=== PATIENT | male | born 1950 | race Caucasian/White ===

== ENCOUNTER 2017-03-11 14:51 | Inpatient (IN) | payer MEDICARE, BC ==
[~2017-03-11] VITALS: Ht 160 cm; Wt 92.0 kg
[~2017-03-11 14:51] MED LIST: ASPI-535; BENA40TA54; CLOP75TA19; HYDR1CAP; ISOS60TA52; LANS30CA47; METO-53; NITR0.4T6; PRA40
[2017-03-11] MEDS ORDERED: ASPIRIN 325 MG TAB PO STA (16:23)
[2017-03-11] MEDS ORDERED: NITROGLYCERIN (SL) 0.4 MG TAB SL PRN (16:30)
[2017-03-11] MEDS ORDERED: morphine 4 MG/ML VIAL IV STA (16:32)
[2017-03-11] MEDS ORDERED: ONDANSETRON 4 MG INJ IV STA ×2 (16:32→18:59)
[2017-03-11 16:40] LABS: ADD SCAN DIFF NO
[2017-03-11 16:42] LABS: BASOPHILS % 0.5 % (0.0-2.0); EOSINOPHILS # 0.3 10^3/ul (0.0-0.5); EOSINOPHILS % 3.3 % (0.0-7.0); HEMATOCRIT 46.5 % (42.0-52.0); HEMOGLOBIN 15.6 g/dl (14.0-18.0); LYMPHOCYTES # 1.3 10^3/ul (0.8-2.9); LYMPHOCYTES % 16.9 % (15.0-51.0); MEAN CORPUSCULAR HEMOGLOBIN 31.3 pg (29.0-33.0); MEAN CORPUSCULAR HGB CONC 33.5 g/dl (32.0-37.0); MEAN CORPUSCULAR VOLUME 93.4 fl (82.0-101.0); MEAN PLATELET VOLUME 10.5 fl (7.4-10.4); MONOCYTE # 0.7 10^3/ul (0.3-0.9); MONOCYTES % 9.2 % (0.0-11.0); NEUTROPHIL # 5.3 10^3/ul (1.6-7.5); NEUTROPHILS % 69.3 % (39.0-77.0); PLATELET COUNT 159 10^3/UL (140-415); RED BLOOD COUNT 4.98 10^6/ul (4.70-6.10); RED CELL DISTRIBUTION WIDTH 14.8 % (11.5-14.5); WHITE BLOOD COUNT 7.6 10^3/ul (4.8-10.8)
[2017-03-11 16:57] LABS: INR 1.04; PROTIME 13.6 Sec (12.2-14.2); PT RATIO 1.1
[2017-03-11 16:59] LABS: ALANINE AMINOTRANSFERASE 73 IU/L (13-69); ALBUMIN 4.2 g/dl (3.3-4.9); ALBUMIN/GLOBULIN RATIO 1.82; ALKALINE PHOSPHATASE 76 IU/L (42-121); AMYLASE 50 U/L (11-123); ANION GAP 18 (8-16); ASPARTATE AMINO TRANSFERASE 124 IU/L (15-46); BILIRUBIN,INDIRECT 0.4 mg/dl (0-1.1); BILIRUBIN,TOTAL 0.4 mg/dl (0.2-1.3); BLOOD UREA NITROGEN 33 mg/dl (7-20); CALCIUM 9.2 mg/dl (8.4-10.2); CARBON DIOXIDE 24 mmol/L (21-31); CHLORIDE 102 mmol/L (97-110); CREATINE KINASE 86 IU/L (23-200); CREATININE 1.68 mg/dl (0.61-1.24); GLUCOSE 128 mg/dl (70-220); SODIUM 140 mmol/L (135-144); TOTAL PROTEIN 6.5 g/dl (6.1-8.1)
[2017-03-11 17:11] LABS: B-TYPE NATRIURETIC PEPTIDE 281 PG/ML (0-125)
[2017-03-11 17:16] LABS: CK-MB 2.06 ng/ml (0.0-2.4); TROPONIN-I < 0.012 ng/ml (0.00-0.12)
[2017-03-11] MEDS ORDERED: SOD CHLORIDE 0.9% 1,000 ML IV STA (17:39)
--- NOTE | 2017-03-11 17:44 | ERA ---
ER Documentation Chief Complaint Date/Time DATE: 03/11/17 TIME: 17:39 Chief Complaint CONSTANT LEFT CHEST PAIN/RADIATES TO BACK/NON-PROVOKED HPI This is a 66-year-old [place]alan-speaking male with a known history of coronary artery disease with a triple bypass performed 20 years prior to arrival. The patient indicates that 2 days prior to arrival the patient had been washing his hands in the bathroom when he had a brief transient loss of consciousness, with loss of postural tone that lasted for roughly 20 minutes. This was witnessed by his . He did not hit his head during the syncope episode. His indicated he had a similar episode on January 25, 2017 roughly a month and half ago when he was admitted to [facility] for 2 days and she indicates all tests were benign. His top collar maker is Dr. Elkins who he saw on March 03, 2017, 7 days ago. He stated he underwent a stress test but does not know the results. His reasoning for coming to the emergency department today is upon awakening he experienced a left-sided chest pressure that radiated to the back. He stated the chest pressure was 10 out of 10 in intensity. The chest pressure also radiated to his arm. He is right-handed dominant. He denies any shortness of breath at rest or exertion. He denied any hemoptysis hematemesis or melanotic stools. He felt nauseous and diaphoretic during the onset of the chest pain which lasted for roughly 20 minutes. He stated the pain resolved and then returned. His made him come to the emergency department to be further evaluated. ROS All systems reviewed and are negative except as per history of present illness. Medications Home Meds Reported Medications Aspirin Ec (Aspir 81) 81 Mg Tablet. 11/03/09 Nitroglycerin* (Nitroglycerin* SL) 0.4 Mg Tab.subl 11/03/09 Lansoprazole* (Prevacid*) 30 Mg Capsule. 11/03/09 Isosorbide Mononitrate* (Imdur*) 60 Mg Tab.sr.24h 11/03/09 Metoprolol (Lopressor) 50 Mg Tablet 11/03/09 Benazepril Hcl* (Lotensin*) 40 Mg Tablet 11/03/09 Hydralazine/Hydrochlorothiazid (Hydra-Zide 50-50 Capsule) 1 Cap Capsule 3/9/10 Pravastatin Sodium* (Pravachol*) 40 Mg Tablet 11/03/09 Clopidogrel Bisulfate (Plavix) 75 Mg Tablet 11/03/09 Allergies Allergies: Coded Allergies: No Known Allergies (Verified Allergy, Mild, 11/03/09) PMhx/Soc History of Surgery: Yes (3x bypass ,1995, CARDIAC STENT X 3 ) Hx Neurological Disorder: No Hx Respiratory Disorders: No Hx Cardiac Disorders: Yes (CAD, htn) Hx Miscellaneous Medical Probl: No Hx Alcohol Use: No Hx Substance Use: No Hx Tobacco Use: No Smoking Status: Never smoker Physical Exam Vitals Vital Signs Date Time Temp Pulse Resp B/P Pulse Ox O2 Delivery O2 Flow Rate FiO2 03/12/17 01:19 76 17 115/74 98 Room Air 03/11/17 22:23 69 17 139/73 100 Room Air 03/11/17 20:28 75 18 129/87 96 Room Air 03/11/17 16:55 81 20 110/76 96 Room Air 03/11/17 14:54 97.4 84 18 135/76 97 Physical Exam Constitutional:Well-developed. Well-nourished. HEENT:Normocephalic. Atraumatic.Pupils were equal round reactive to light. Moist mucous membranes.No tonsillar exudates. Neck: No nuchal rigidity. No lymphadenopathy. No posterior cervical spine tenderness or step-offs. Respiratory: Not using accessory muscles of respiration.Lungs were clear to auscultation bilaterally. No rhonchi. No rales. No wheezing. Cardiovascular: Regular rate regular rhythm.No murmurs. No rubs were appreciated.S1, S2 normal. Distal pulses are palpable 2+ bilaterally. GI: Abdomen was soft. Nontender. Non Distended. No pulsatile abdominal masses or bruits. No rebound. No guarding. Bowel sounds were present and normal. Muscle skeletal: Full range of motion of both the upper and lower extremities bilaterally.Normal muscle tone.No assymetrical calf tenderness or swelling. Skin: No petechia, no purpura. No lesions on the palms or the soles of the feet. No maculopapular rash. NEURO: Patient was alert, awake, orientated x3.No facial droop. Gait observed and normal with no ataxia.Speech had regular rate and rhythm. No focal neurological deficits. Result Diagram: 03/11/17 1634 03/11/17 1634 Results 24 hrs Laboratory Tests Test 03/11/17 16:34 03/11/17 23:54 White Blood Count 7.610^3/ul Red Blood Count 4.9810^6/ul Hemoglobin 15.6g/dl Hematocrit 46.5% Mean Corpuscular Volume 93.4fl Mean Corpuscular Hemoglobin 31.3pg Mean Corpuscular Hemoglobin Concent 33.5g/dl Red Cell Distribution Width 14.8% Platelet Count 45833^3/UL Mean Platelet Volume 10.5fl Neutrophils % 69.3% Lymphocytes % 16.9% Monocytes % 9.2% Eosinophils % 3.3% Basophils % 0.5% Nucleated Red Blood Cells % 0.0/100WBC Neutrophils # 5.310^3/ul Lymphocytes # 1.310^3/ul Monocytes # 0.710^3/ul Eosinophils # 0.310^3/ul Basophils # 0.010^3/ul Nucleated Red Blood Cells # 0.010^3/ul Prothrombin Time 13.6Sec Prothrombin Time Ratio 1.1 INR International Normalized Ratio 1.04 Activated Partial Thromboplast Time 21.0Sec Sodium Level 140mmol/L Potassium Level 4.0mmol/L Chloride Level 102mmol/L Carbon Dioxide Level 24mmol/L Anion Gap 18 Blood Urea Nitrogen 33mg/dl Creatinine 1.68mg/dl Glucose Level 128mg/dl Calcium Level 9.2mg/dl Total Bilirubin 0.4mg/dl Direct Bilirubin 0.00mg/dl Indirect Bilirubin 0.4mg/dl Aspartate Amino Transf (AST/SGOT) 124IU/L Alanine Aminotransferase (ALT/SGPT) 73IU/L Alkaline Phosphatase 76IU/L Creatine Kinase 86IU/L 69IU/L Creatine Kinase Index 2.4 2.6 Creatinine Kinase MB (Mass) 2.06ng/ml 1.79ng/ml Troponin I < 0.012ng/ml < 0.012ng/ml B-Type Natriuretic Peptide 281PG/ML Total Protein 6.5g/dl Albumin 4.2g/dl Globulin 2.30g/dl Albumin/Globulin Ratio 1.82 Amylase Level 50U/L Lipase 235U/L Current Medications Medications (Trade) Dose Ordered Sig/Teo Route PRN Reason Start Time Stop Time Status Last Admin Dose Admin Aspirin (Aspirin) 325 mg ONCE STAT PO 03/11/17 16:23 03/11/17 16:25 DC 03/11/17 16:46 Nitroglycerin (Nitroglycerin (Sl Tab) 0.4 Mg) 1 tab Q5M UP TO 3 DOSES PRN SL CHEST PAIN 03/11/17 16:30 03/12/17 00:42 DC 03/11/17 16:40 Morphine Sulfate (morphine) 4 mg ONCE STAT IV 03/11/17 16:32 03/11/17 16:33 DC 03/11/17 16:46 Ondansetron HCl 4 mg 4 mg ONCE STAT IV 03/11/17 16:32 03/11/17 16:33 DC 03/11/17 16:46 Sodium Chloride (NS) 1,000 ml @ 1,000 mls/hr Q1H STAT IV 03/11/17 17:39 03/11/17 18:38 DC 03/11/17 17:39 IV Flush 10 ml 10 ml STK-MED ONCE .ROUTE 03/11/17 18:28 03/11/17 18:29 DC Sodium Chloride (NS) 100 ml @ ud STK-MED ONCE .ROUTE 03/11/17 18:28 03/11/17 18:29 DC Iodixanol (Visipaque Locm) 100 ml STK-MED ONCE .ROUTE 03/11/17 18:28 03/11/17 18:29 DC Hydromorphone HCl (Dilaudid) 1 mg ONCE STAT IV 03/11/17 18:59 03/11/17 19:10 DC 03/11/17 19:18 Ondansetron HCl (Zofran Inj) 4 mg ONCE STAT IV 03/11/17 18:59 03/11/17 19:10 DC 03/11/17 19:17 Ondansetron HCl (Zofran Inj) 4 mg ER BRIDGE PRN IV NAUSEA AND/OR VOMITING 03/11/17 20:00 03/12/17 00:42 DC Acetaminophen (Tylenol Tab) 650 mg ER BRIDGE PRN PO MILD PAIN/FEVER 03/11/17 20:00 03/12/17 00:42 DC Hydromorphone HCl (Dilaudid) 1 mg Q4 PRN IV PAIN LEVEL 7-10 03/12/17 00:30 03/12/17 00:44 IV Flush (NS 3 ml) 3 ml PER PROTOCOL IV 03/12/17 00:30 Ondansetron HCl (Zofran Inj) 4 mg Q6H PRN IV NAUSEA AND/OR VOMITING 03/12/17 00:30 Nitroglycerin (Nitroglycerin (Sl Tab) 0.4 Mg) 1 tab Q5M PRN SL CHEST PAIN 03/12/17 00:30 Acetaminophen (Tylenol Tab) 650 mg Q6H PRN PO PAIN LEVEL 1-3 OR FEVER 03/12/17 00:30 Docusate Sodium (Colace) 100 mg Q12H PRN PO CONSTIPATION 03/12/17 00:30 Bisacodyl (Dulcolax) 5 mg DAILY PRN PO CONSTIPATION 03/12/17 00:30 Pantoprazole (Protonix Iv) 40 mg DAILY@06 IV 03/12/17 06:00 Aspirin (Halfprin) 81 mg DAILY PO 03/12/17 09:00 Clopidogrel Bisulfate (plaVIX) 75 mg DAILY PO 03/12/17 09:00 Metoprolol Tartrate (Lopressor) 50 mg DAILY PO 03/12/17 09:00 Isosorbide Mononitrate (Imdur) 60 mg DAILY PO 03/12/17 09:00 [facility] The patient presented to the emergency department with chest pain. My clinical evaluation and workup was to distinguish minor causes of chest pain from acute life threatening conditions such as myocardial infarction, pulmonary embolism, aortic dissection, esophageal rupture, cardiac tamponade. The patient was placed on a cardiac care unit nurse and continuous pulse oximetry. IV access established by nursing staff. Patient was given 325 mg of aspirin p.o. The patient still expansive chest pain and therefore was given IV morphine and Zofran. 12 Lead EKG tracing ordered and reviewed by myself showed: Normal sinus rhythm of 82 bpm and no arrhythmia. AR interval normal. QRS duration normal. No ST segment elevation No ST segment depression. No changes consistent with acute ischemia. I obtained a CT scan of the patient's chest which showed no evidence of a pulmonary embolism or aortic dissection. The patient is CT scan of the head that showed no intracerebral hemorrhage. The patient will be admitted in serious condition in the care of the hospitalist Dr. Moore for serial 12-lead EKG tracings and cardiac set of enzymes Departure Diagnosis: Primary Impression: Chest pain Qualified Code: R07.9 - Chest pain, unspecified type Additional Impressions: Syncope Qualified Code: R55 - Syncope, unspecified syncope type Renal failure Condition: Serious ELOISE GARCIA Mar 11, 2017 17:44
--- NOTE | 2017-03-11 18:15 | RADRPT ---
PROCEDURE: XR Chest. CLINICAL INDICATION: Chest pain. TECHNIQUE: Single frontal view. COMPARISON: None. FINDINGS: The lungs are clear. The heart is mildly enlarged. There are sternal wires and mediastinal clips. There is no pleural effusion. There is no pneumothorax. IMPRESSION: 1. Mild cardiomegaly. 2. Clear lungs. 3. Previous median sternotomy. RPTAT: QQ .James Peñaloza MD, MD Date Time Electronically viewed and signed by .James Peñaloza MD, MD on 03/11/2017 18:15 .R/
[2017-03-11] MEDS ORDERED: SOD CHLORIDE 0.9% 100 ML ONE (18:28)
[2017-03-11] MEDS ORDERED: IODIXANOL LOCM 100 ML BTL ONE (18:28)
[2017-03-11] MEDS ORDERED: HYDROmorphONE 1 MG/ML SYG IV STA (18:59)
--- NOTE | 2017-03-11 19:04 | RADRPT ---
PROCEDURE: CT Brain without contrast. CLINICAL INDICATION: Syncope TECHNIQUE: Routine CT scan of the brain was performed on a high resolution multi detector scanner without intravenous contrast. One or more of the following dose reduction techniques were used: Auto mated exposure control; Adjustment of the mA and/or kV according to patient size; Use of iterative r econstruction technique. CTDI = 43 mGy. DLP = 720 mGy-cm. COMPARISON: No prior relevant examinations are available for comparison. FINDINGS: Hemorrhage: No evidence of intracranial hemorrhage. Acute ischemic changes: No evidence of acute ischemic changes. Mass effect/Midline shift: None. Parenchymal volume: Within normal limits for age. Ventricular system: Concordant with parenchymal volume. Chronic changes: Mild chronic-appearing microvascular ischemic changes of the supratentorial white m atter, asymmetrically involving the right frontal lobe. Atherosclerotic calcifications of the cavern ous portions of both internal carotid arteries are present. Extracranial soft tissues: Unremarkable. Calvarium: No fractures. Advanced degenerative changes of the right mandibular condyle. Paranasal sinuses: Visualized paranasal sinuses are clear. Mastoid air cells: Visualized mastoid air cells are clear. IMPRESSION: No acute intracranial abnormalities. Mild chronic-appearing microvascular ischemic changes of the supratentorial white matter. RPTAT: AADD .Angel Anderson MD, MD Date Time Electronically viewed and signed by .Angel Anderson MD, MD on 03/11/2017 19:04 .B/
--- NOTE | 2017-03-11 19:13 | RADRPT ---
PROCEDURE: CT thoracic angiogram. CLINICAL INDICATION: Chest pain and shortness of breath. TECHNIQUE: CT pulmonary angiogram, CT angiogram of the thoracic aorta, and a CT scan of the chest with contrast was performed. The patient was scanned following the uncomplicated intravenous admini stration of 100 ml of Visipaque 320 intravenous contrast. 2-D coronal reformatted images were obtai fausto from the axial source images. In addition, 3-D post processing was performed. Total exam DLP i s 718.89 mGy-cm. CTDIvol is 56.34 mGy. One or more of the following dose reduction techniques were used: Automated exposure control, adjustment of the mA and/or kV according to patient size, use of iterative reconstruction technique. COMPARISON: None available. FINDINGS: The pulmonary arteries are normal with no filling defect or lack of enhancement to suggest pulmonary artery embolism. The lungs are clear. There is no pulmonary airspace or interstitial disease. There is no pulmonary nodule or mass lesion. There is no pneumothorax. The heart is mildly enlarged. There is extensive coronary artery calcific ation. There are sternal wires and mediastinal clips from previous CABG. There is no mediastinal or hilar lymphadenopathy or mass. There is no pleural effusion. There is no pericardial effusion. There is calcification in the aorta consistent with atherosclerosis. The thoracic aorta is otherwis e normal with no aneurysm or dissection. Images through the upper abdomen demonstrate normal visualized portions of the liver, spleen, and ad renals. The osseous structures are normal with no fracture or lytic lesion. IMPRESSION: 1. Normal CT pulmonary angiogram with no evidence of pulmonary artery embolism. 2. Normal CT thoracic aorta angiogram with no evidence of aortic dissection. 3. Previous CABG. 4. Otherwise unremarkable study. RPTAT: QQ .James Peñaloza MD, Date Time Electronically viewed and signed by .James Peñaloza MD, on 03/11/2017 19:13 .R/
[2017-03-11] MEDS ORDERED: ONDANSETRON 4 MG INJ IV PRN (20:00)
[2017-03-11] MEDS ORDERED: ACETAMINOPHEN 325 MG TAB PO PRN (20:00)
[2017-03-12] VITALS (13 sets, daily range): BP systolic 118–154; BP diastolic 66–80; PULSE 66–80; RESP 17–19; Ht 160 cm; Wt 92.0 kg
[2017-03-12] MEDS ORDERED: NITROGLYCERIN (SL) 0.4 MG TAB SL PRN (00:30)
[2017-03-12] MEDS ORDERED: NACL 0.9% 3 ML SYG IV SCH (00:30)
[2017-03-12] MEDS ORDERED: BISACODYL (EC) 5 MG TAB PO PRN (00:30)
[2017-03-12] MEDS ORDERED: ONDANSETRON 4 MG INJ IV PRN (00:30)
[2017-03-12] MEDS ORDERED: DOCUSATE SODIUM 100 MG CAP PO PRN (00:30)
[2017-03-12 00:35] LABS: CREATINE KINASE 69 IU/L (23-200)
[2017-03-12] MEDS: HYDROmorphONE 1 MG/ML SYG IV PRN ×3 (00:44→15:33)
[2017-03-12 00:46] LABS: CK-MB 1.79 ng/ml (0.0-2.4); TROPONIN-I < 0.012 ng/ml (0.00-0.12)
--- NOTE | 2017-03-12 03:06 | HP ---
Date/Time of Note Date/Time of Note DATE: 03/12/17 TIME: 02:48 Assessment/Plan VTE Prophylaxis VTE Prophylaxis Intervention: SCD's Lines/Catheters IV [facility]ter [facility] (from [facility] Saline Lock Assessment/Plan Chief Complaint/Hosp Course This is a 66-year-old male being admitted to the telemetry floor for: #1 chest pain: Rule out ACS versus musculoskeletal pain. Patient has a significant history of cardiac disease which does put him at high risk. We will trend troponins first set is negative. Initial EKG did not show any overt ST or T-wave abnormalities as per ED physician recommendation. Patient also has palpable tenderness to palpation of his anterior chest wall as well as posterior upper and mid back. He did have a fall this likely could be secondary to that. Imaging studies so far have been negative including no signs of any rib fractures, please refer to the imaging study reports for further information.. We will continue to monitor the patient with serial troponins. And will have patient's blade boner see the patient in the a.m. as he was seen by his blade boner recently I will defer any further imaging studies to them as they may be able to obtain current ones from there respective outpatient offices. #2 syncope: Patient apparently was unconscious for 20 minutes approximately 2-3 days ago. At the current time patient is neurologically intact with no focal abnormalities noted. CT scan of the head was negative. However in light of this I will order carotid Doppler ultrasounds. I will also order an MRI of the brain to further evaluate. And will request neurological consult if indicated. #3 diabetes: Continue diabetic control diet. Insulin sliding scale. #4 coronary artery disease: Patient has a history of CABG and stents. At the current time will resume home medications, please see #1 further information. #5 Acute on chronic kidney disease: Patient's previous creatinine was 1.3 approximately 7 years ago based on our lab work in the system. Unknown whether this patient's new baseline. Will monitor electrolytes and consult nephrology if indicated. Avoid nephrotoxic agents. Continue aspirin Plavix and beta- leanna, Imdur #6 hypertension: Continue to monitor and will hold ORIN inhibitor hydrochlorthiazide at the moment, resume once kidney function shows improvement. #7 DVT and GI prophylaxis: SCDs, Protonix Further treatment strategy will be implemented as per the clinical course Problems: HPI/ROS Admit Date/Time Admit Date/Time Hx of Present Illness Chief complaint: Syncope, chest pain This is a 66-year-old Filipino-speaking male with a known history of coronary artery disease with a triple bypass performed 20 years ago as well as cardiac stents. The patient indicates that 2 days prior to arrival the patient had been washing his hands in the bathroom when he had a brief transient loss of consciousness, with loss of postural tone that lasted for roughly 20 minutes. This was witnessed by his . He did not hit his head during the syncope episode. His indicated he had a similar episode on January 25, 2017 roughly a month and half ago when he was admitted to [facility] for 2 days and she indicates all tests were benign. His blade boner is Dr. Elkins who he saw on March 03, 2017, 7 days ago. He stated he underwent a stress test but does not know the results. His reasoning for coming to the emergency department today is upon awakening he experienced a left-sided chest pressure that radiated to the back. He stated the chest pressure was 10 out of 10 in intensity. The chest pressure also radiated to his arm. He denies any shortness of breath at rest or exertion. He denied any hemoptysis hematemesis or melanotic stools. He felt nauseous and diaphoretic during the onset of the chest pain which lasted for roughly 20 minutes. He stated the pain resolved and then returned. His made him come to the emergency department to be further evaluated. At the current time upon my examination the patient reports tenderness to palpation over the anterior left chest as well as the posterior upper back. Allergies: NKDA Medications: See RADHA SOLO Const: As per HPI Eyes : No pain discharge or redness or change in visual acuity ENT: No pain, sore throat, congestion, congestion, dysphagia or discharge Respiratory: No shortness of breath, cough, sputum, wheezing, or pleuritic pain Cardiovascular: As per HPI GI : no change in appetite, abdominal pain, nausea, vomiting, diarrhea, constipation, or change in the color his stool Genitourinary: No dysuria, hematuria, flank pain , discharge or CVA tenderness Musculoskeletal: As per HPI Skin: No rash, bruising or hives Neuro: As per HPI Endocrine: No polyuria, polydipsia, temperature intolerance Psych: No hallucination, depression, anxiety or suicidal ideation PMH/Family/Social Past Medical History Diabetes mellitus, hypertension, coronary artery disease Past Surgical History CABG, cardiac stents 3 Family History Significant Family History: heart disease Social History Alcohol Use: none Smoking Status: Never smoker Drug Use: none Exam/Review of Systems Vital Signs Vitals Vital Signs Date Time Temp Pulse Resp B/P Pulse Ox O2 Delivery O2 Flow Rate FiO2 03/12/17 01:19 76 17 115/74 98 Room Air 03/11/17 14:54 97.4 Exam Exam General: This is a pleasant male walking around the room in no acute distress. HEENT: Atraumatic, normocephalic. The pupils are equal, round and reactive. Extraocular motor are intact Neck: Supple with full range of motion. No rigidity or meningismus Chest: Tender to palpation over the left chest wall Lungs: Clear to auscultation bilaterally no crackles rales or wheezing Heart: Right anterior intercostal space systolic murmur, regular rate and rhythm , Abdomen: Soft , nontender, nondistended , bowel sounds are present. No guarding no rebound tenderness , No masses or organomegaly. No costovertebral temporal angle mass Extremities: Normal to inspection, no edema no cyanosis Neurologic: Normal mental status, speech normal, cranial nerves II through XII are intact, motor and sensory are intact, no focal weakness Musculoskeletal: Tender to palpation over the left paravertebral muscles along the thoracic spine level Additional Comments PROCEDURE: CT thoracic angiogram. CLINICAL INDICATION: Chest pain and shortness of breath. TECHNIQUE: CT pulmonary angiogram, CT angiogram of the thoracic aorta, and a CT scan of the chest with contrast was performed. The patient was scanned following the uncomplicated intravenous administration of 100 ml of Visipaque 320 intravenous contrast. 2-D coronal reformatted images were obtained from the axial source images. In addition, 3-D post processing was performed. Total exam DLP is 718.89 mGy-cm. CTDIvol is 56.34 mGy. One or more of the following dose reduction techniques were used: Automated exposure control, adjustment of the mA and/or kV according to patient size, use of iterative reconstruction technique. COMPARISON: None available. FINDINGS: The pulmonary arteries are normal with no filling defect or lack of enhancement to suggest pulmonary artery embolism. The lungs are clear. There is no pulmonary airspace or interstitial disease. There is no pulmonary nodule or mass lesion. There is no pneumothorax. The heart is mildly enlarged. There is extensive coronary artery calcification. There are sternal wires and mediastinal clips from previous CABG. There is no mediastinal or hilar lymphadenopathy or mass. There is no pleural effusion. There is no pericardial effusion. There is calcification in the aorta consistent with atherosclerosis. The thoracic aorta is otherwise normal with no aneurysm or dissection. Images through the upper abdomen demonstrate normal visualized portions of the liver, spleen, and adrenals. The osseous structures are normal with no fracture or lytic lesion. IMPRESSION: 1. Normal CT pulmonary angiogram with no evidence of pulmonary artery embolism. 2. Normal CT thoracic aorta angiogram with no evidence of aortic dissection. 3. Previous CABG. 4. Otherwise unremarkable study. RPTAT: QQ .James Peñaloza MD, Date Time Electronically viewed and signed by .James Peñaloza MD, MD on 03/11/2017 19:13 PROCEDURE: XR Chest. CLINICAL INDICATION: Chest pain. TECHNIQUE: Single frontal view. COMPARISON: None. FINDINGS: The lungs are clear. The heart is mildly enlarged. There are sternal wires and mediastinal clips. There is no pleural effusion. There is no pneumothorax. IMPRESSION: 1. Mild cardiomegaly. 2. Clear lungs. 3. Previous median sternotomy. RPTAT: QQ .James Peñaloza MD, Date Time Electronically viewed and signed by .James Peñaloza MD, MD on 03/11/2017 18:15 PROCEDURE: CT Brain without contrast. CLINICAL INDICATION: Syncope TECHNIQUE: Routine CT scan of the brain was performed on a high resolution multi detector scanner without intravenous contrast. One or more of the following dose reduction techniques were used: Automated exposure control; Adjustment of the mA and/or kV according to patient size; Use of iterative reconstruction technique. CTDI = 43 mGy. DLP = 720 mGy-cm. COMPARISON: No prior relevant examinations are available for comparison. FINDINGS: Hemorrhage: No evidence of intracranial hemorrhage. Acute ischemic changes: No evidence of acute ischemic changes. Mass effect/Midline shift: None. Parenchymal volume: Within normal limits for age. Ventricular system: Concordant with parenchymal volume. Chronic changes: Mild chronic-appearing microvascular ischemic changes of the supratentorial white matter, asymmetrically involving the right frontal lobe. Atherosclerotic calcifications of the cavernous portions of both internal carotid arteries are present. Extracranial soft tissues: Unremarkable. Calvarium: No fractures. Advanced degenerative changes of the right mandibular condyle. Paranasal sinuses: Visualized paranasal sinuses are clear. Mastoid air cells: Visualized mastoid air cells are clear. IMPRESSION: No acute intracranial abnormalities. Mild chronic-appearing microvascular ischemic changes of the supratentorial white matter. EKG Normal sinus rhythm of 82 bpm and no arrhythmia. DC interval normal. QRS duration normal. No ST segment elevation No ST segment depression. No changes consistent with acute ischemia. As per ED physician documentation Labs Result Diagram: 03/11/17 1634 03/11/17 1634 Medications Medications Current Medications Hydromorphone HCl (Dilaudid) 1 mg Q4 PRN IV PAIN LEVEL 7-10 Last administered on 03/12/17t 00:44; Admin Dose 1 MG; Start 03/12/17 at 00:30 Ondansetron HCl (Zofran Inj) 4 mg Q6H PRN IV NAUSEA AND/OR VOMITING; Start at 00:30 Nitroglycerin (Nitroglycerin (Sl Tab) 0.4 Mg) 1 tab Q5M PRN SL CHEST PAIN; Start 03/12/17 at 00:30 Acetaminophen (Tylenol Tab) 650 mg Q6H PRN PO PAIN LEVEL 1-3 OR FEVER; Start at 00:30 Docusate Sodium (Colace) 100 mg Q12H PRN PO CONSTIPATION; Start 03/12/17 at 00: 30 Bisacodyl (Dulcolax) 5 mg DAILY PRN PO CONSTIPATION; Start 03/12/17 at 00:30 Pantoprazole (Protonix Iv) 40 mg DAILY@06 IV ; Start 03/12/17 at 06:00 Aspirin (Halfprin) 81 mg DAILY PO ; Start 03/12/17 at 09:00 Clopidogrel Bisulfate (plaVIX) 75 mg DAILY PO ; Start 03/12/17 at 09:00 Metoprolol Tartrate (Lopressor) 50 mg DAILY PO ; Start 03/12/17 at 09:00 Isosorbide Mononitrate (Imdur) 60 mg DAILY PO ; Start 03/12/17 at 09:00 GHASSAN BYERS Mar 12, 2017 03:01
[2017-03-12] MEDS ORDERED: DEXTROSE 50% 50 ML SYRINGE IV PRN ×2 (03:30)
[2017-03-12] MEDS ORDERED: GLUCOSE GEL 15 GRAM TUBE PO PRN ×2 (03:30)
[2017-03-12] MEDS ORDERED: GLUCAGON 1 MG INJ IM PRN (03:30)
[2017-03-12] MEDS ORDERED: GLUCOSE GEL 15 GRAM TUBE BUCCAL PRN (03:30)
[2017-03-12] MEDS ORDERED: PANTOPRAZOLE 40 MG INJ IV SCH (06:00)
[2017-03-12] MEDS: INSULIN ASPART [NOVOLOG] 3 ML PEN SC SCH ×4 (08:00→21:00)
[2017-03-12 08:09] LABS: ADD SCAN DIFF NO
[2017-03-12 08:39] LABS: BASOPHIL # 0.1 10^3/ul (0.0-0.1); BASOPHILS % 0.7 % (0.0-2.0); EOSINOPHILS # 0.3 10^3/ul (0.0-0.5); EOSINOPHILS % 4.2 % (0.0-7.0); HEMATOCRIT 45.1 % (42.0-52.0); HEMOGLOBIN 14.4 g/dl (14.0-18.0); LYMPHOCYTES # 0.8 10^3/ul (0.8-2.9); LYMPHOCYTES % 12.6 % (15.0-51.0); MEAN CORPUSCULAR HEMOGLOBIN 30.8 pg (29.0-33.0); MEAN CORPUSCULAR HGB CONC 31.9 g/dl (32.0-37.0); MEAN CORPUSCULAR VOLUME 96.4 fl (82.0-101.0); MEAN PLATELET VOLUME 10.7 fl (7.4-10.4); MONOCYTE # 0.7 10^3/ul (0.3-0.9); MONOCYTES % 9.9 % (0.0-11.0); NEUTROPHIL # 4.8 10^3/ul (1.6-7.5); PLATELET COUNT 138 10^3/UL (140-415); RED BLOOD COUNT 4.68 10^6/ul (4.70-6.10); WHITE BLOOD COUNT 6.7 10^3/ul (4.8-10.8)
[2017-03-12] MEDS: CLOPIDOGREL 75 MG TAB PO SCH (08:55)
[2017-03-12] MEDS: ASPIRIN (EC) 81 MG TAB PO SCH (08:56)
[2017-03-12] MEDS: METOPROLOL 50 MG TAB PO SCH ×3 (08:56→09:46)
[2017-03-12] MEDS: ISOSORBIDE MONONITRATE(SR)60 MG TAB PO SCH (08:56)
[2017-03-12 09:02] LABS: CREATINE KINASE 47 IU/L (23-200)
[2017-03-12 09:14] LABS: CHOL/HDL RATIO 4.6 RATIO
[2017-03-12 09:22] LABS: CK-MB 1.38 ng/ml (0.0-2.4); TROPONIN-I < 0.012 ng/ml (0.00-0.12)
[2017-03-12] MEDS: ACETAMINOPHEN 325 MG TAB PO PRN (09:43)
[2017-03-12 09:47] LABS: ALBUMIN 3.4 g/dl (3.3-4.9); ALBUMIN/GLOBULIN RATIO 1.7; BILIRUBIN,INDIRECT 0.4 mg/dl (0-1.1); BILIRUBIN,TOTAL 0.4 mg/dl (0.2-1.3); CALCIUM 9.2 mg/dl (8.4-10.2); CREATININE 1.48 mg/dl (0.61-1.24); POTASSIUM 4.3 mmol/L (3.5-5.1); TOTAL PROTEIN 5.4 g/dl (6.1-8.1)
--- NOTE | 2017-03-12 10:09 | RADRPT ---
PROCEDURE: US carotid arteries. CLINICAL INDICATION: Dizziness. TECHNIQUE: Multiple sonographic images of the carotid arteries and vertebral arteries were obtaine d utilizing montano scale, duplex, and color-flow imaging. The images were reviewed on a PACS workstati on. COMPARISON: No prior studies are available for comparison. FINDINGS: Evaluation of the right carotid bifurcation region reveals mild atherosclerotic disease. Evaluation of the left carotid bifurcation region reveals mild atherosclerotic disease. There is antegrade flow within the vertebral arteries bilaterally. RIGHT CAROTID MEASUREMENTS: Common Carotid [id number] (cm/sec) Internal Carotid Artery 83 (cm/sec) External Carotid Artery 151 (cm/sec) Vertebral Artery 67 (cm/sec) Internal Carotid/Common Carotid1.3 LEFT CAROTID MEASUREMENTS: Common Carotid [id number] (cm/sec) Internal Carotid Artery 134 (cm/sec) External Carotid Artery 100 (cm/sec) Vertebral Artery 56 (cm/sec) Internal Carotid/Common Carotid1.4 Validated velocity measurements with angiographic measurements. Velocity criteria are extrapolated f rom diameter data as defined by the Society of Radiologists in Ultrasound Consensus Conference. Radi ology 2003; 229;340-346. This study does indirectly reference the measurement of the distal ICA tyson meter as the denominator for stenosis measurement. IMPRESSION: 1. Less than 50% stenosis bilaterally in the internal carotid arteries. 2. Normal antegrade flow in the vertebral arteries bilaterally. RPTAT: QQ SRU Consensus Conference Criteria for the Diagnosis of Carotid Artery Stenosis* Degree of Stenosis, % ICA PSV, cm/sec Plaque Estimate, % ICA/CCA PSV Ratio Normal <125 None <2.0 <50 <125 <50 <2.0 50 69 125-230 >50 2.0-4.0 >70 but less than near occlusion >230 >50 <4.0 Near occlusion High, low, or undetectable Visible Variable Total occlusion Undetectable Visible, no detectable lumen Not applicable *Cartoid artery stenosis: montano-scale and Doppler US diagnosis. Society of Radiologists in Ultrasound Consensus Conference. Radiology 2003; 229: 340-346 .James Peñaloza MD, Date Time Electronically viewed and signed by .James Peñaloza MD, on 03/12/2017 10:08 .R/
--- NOTE | 2017-03-12 12:41 | PN ---
Date/Time of Note Date/Time of Note DATE: 03/12/17 TIME: 12:37 Assessment/Plan VTE Prophylaxis VTE Prophylaxis Intervention: SCD's Lines/Catheters IV Catheter Type (from Nrsg): Saline Lock Assessment/Plan Assessment/Plan 66 yo M with CAD sp CABG presents with 1 day of chest pain reproducible to palpation, clinically suggestive of costochondritis. Serial troponin negative. However given CAD hx, prudent to consider cardiac etio. Also with 1 day of lightheadedness 2/2 pain meds v other #chest pain -cardiology service to see today -cont tele -TTE ordered -defer high dose NSAIDs until seen by cardiology given CAD hx #lightheadedness: ADR to morphine v other neurologic exam unrevealing neuro consult placed by straw hat brusher #EVE on CKD? baseline Cr unknown acei on hold #CAD hx, HTN, HL: cont home plavix and BP meds #DM2: ?diet controlled? SSI, check a1c SCD prophx Subjective 24 Hr Interval Summary Free Text/Dictation Pt seen with his this AM. Pt states chest pain has not changed since admission. Also reports since getting pain medication in the ER he has felt lightheaded the entire time he's been here-->not exacerbated by position change. No jey vertigo. Exam/Review of Systems Vital Signs Vitals Vital Signs Date Time Temp Pulse Resp B/P Pulse Ox O2 Delivery O2 Flow Rate FiO2 03/12/17 11:43 98.6 62 18 118/66 96 03/12/17 03:00 Room Air Intake and Output 03/11/17 03/11/17 03/12/17 15:00 23:00 07:00 Intake Total 300 ml Balance 300 ml Exam nad, sitting at side of bed voraciously eating mashed potatoes CN 2-12 intact bl, 5/5 strength bl U and LEs, sensorium grossly intact to light touch +ttp over anterior costochondral joints, no mrg lungs clear abd soft no rashes imaging results reviewed .NCCT head unremarkable, Carotid US unremarkable Results Result Diagram: 03/12/17 0746 03/12/17 0746 Results 24 hrs Laboratory Tests Test 03/11/17 16:34 03/11/17 23:54 03/12/17 07:46 03/12/17 07:56 White Blood Count 7.6 6.7 Red Blood Count 4.98 4.68 L Hemoglobin 15.6 14.4 Hematocrit 46.5 45.1 Mean Corpuscular Volume 93.4 96.4 Mean Corpuscular Hemoglobin 31.3 30.8 Mean Corpuscular Hemoglobin Concent 33.5 31.9 L Red Cell Distribution Width 14.8 H 15.0 H Platelet Count 159 138 L Mean Platelet Volume 10.5 H 10.7 H Neutrophils % 69.3 72.0 Lymphocytes % 16.9 12.6 L Monocytes % 9.2 9.9 Eosinophils % 3.3 4.2 Basophils % 0.5 0.7 Nucleated Red Blood Cells % 0.0 0.0 Neutrophils # 5.3 4.8 Lymphocytes # 1.3 0.8 Monocytes # 0.7 0.7 Eosinophils # 0.3 0.3 Basophils # 0.0 0.1 Nucleated Red Blood Cells # 0.0 0.0 Prothrombin Time 13.6 Prothrombin Time Ratio 1.1 INR International Normalized Ratio 1.04 Activated Partial Thromboplast Time 21.0 L Sodium Level 140 139 Potassium Level 4.0 4.3 Chloride Level 102 104 Carbon Dioxide Level 24 25 Anion Gap 18 H 14 Blood Urea Nitrogen 33 H 29 H Creatinine 1.68 H 1.48 H Glucose Level 128 114 Calcium Level 9.2 9.2 Total Bilirubin 0.4 0.4 Direct Bilirubin 0.00 0.00 Indirect Bilirubin 0.4 0.4 Aspartate Amino Transf (AST/SGOT) 124 H 99 H Alanine Aminotransferase (ALT/SGPT) 73 H 63 Alkaline Phosphatase 76 49 Creatine Kinase 86 69 47 Creatine Kinase Index 2.4 2.6 2.9 Creatinine Kinase MB (Mass) 2.06 1.79 1.38 Troponin I < 0.012 < 0.012 < 0.012 B-Type Natriuretic Peptide 281 H Total Protein 6.5 5.4 #L Albumin 4.2 3.4 Globulin 2.30 2.00 Albumin/Globulin Ratio 1.82 1.70 Amylase Level 50 Lipase 235 Hemoglobin A1c 5.5 Triglycerides Level 239 H Cholesterol Level 134 LDL Cholesterol, Calculated 57 HDL Cholesterol 29 L Cholesterol/HDL Ratio 4.6 Thyroid Stimulating Hormone (TSH) 1.310 Bedside Glucose 104 Test 03/12/17 11:29 Bedside Glucose 101 Medications Medications Current Medications Hydromorphone HCl (Dilaudid) 1 mg Q4 PRN IV PAIN LEVEL 7-10 Last administered on 7/16/17at 11:24; Admin Dose 1 MG; Start 03/12/17 at 00:30 Ondansetron HCl (Zofran Inj) 4 mg Q6H PRN IV NAUSEA AND/OR VOMITING; Start at 00:30 Nitroglycerin (Nitroglycerin (Sl Tab) 0.4 Mg) 1 tab Q5M PRN SL CHEST PAIN Last administered on 03/12/17 09:43; Admin Dose 1 TAB; Start 03/12/17 at 00:30 Acetaminophen (Tylenol Tab) 650 mg Q6H PRN PO PAIN LEVEL 1-3 OR FEVER Last administered on 03/12/17 09:43; Admin Dose 650 MG; Start 03/12/17 at 00:30 Docusate Sodium (Colace) 100 mg Q12H PRN PO CONSTIPATION; Start 03/12/17 at 00: 30 Bisacodyl (Dulcolax) 5 mg DAILY PRN PO CONSTIPATION; Start 03/12/17 at 00:30 Aspirin (Halfprin) 81 mg DAILY PO Last administered on 03/12/17 08:56; Admin Dose 81 MG; Start 03/12/17 at 09:00 Clopidogrel Bisulfate (plaVIX) 75 mg DAILY PO Last administered on 03/12/17 08 :55; Admin Dose 75 MG; Start 03/12/17 at 09:00 Metoprolol Tartrate (Lopressor) 50 mg DAILY PO Last administered on 03/12/17 09:46; Admin Dose 50 MG; Start 03/12/17 at 09:00 Isosorbide Mononitrate (Imdur) 60 mg DAILY PO Last administered on 03/12/17 08 :56; Admin Dose 60 MG; Start 03/12/17 at 09:00 Diagnostic Test (Pha) (Accu-Chek) 1 ea 02 XX ; Start 03/13/17 at 02:00 Miscellaneous Information 1 ea NOTE XX ; Start 03/12/17 at 03:30 Glucose (Glutose) 15 gm Q15M PRN PO DECREASED GLUCOSE; Start 03/12/17 at 03:30 Glucose (Glutose) 22.5 gm Q15M PRN PO DECREASED GLUCOSE; Start 03/12/17 at 03: 30 Dextrose (D50w Syringe) 25 ml Q15M PRN IV DECREASED GLUCOSE; Start 03/12/17 at 03:30 Dextrose (D50w Syringe) 50 ml Q15M PRN IV DECREASED GLUCOSE; Start 03/12/17 at 03:30 Glucagon (Glucagen) 1 mg Q15M PRN IM DECREASED GLUCOSE; Start 03/12/17 at 03:30 Glucose (Glutose) 15 gm Q15M PRN BUCCAL DECREASED GLUCOSE; Start 03/12/17 at 03 :30 JP GOMEZ MD Mar 12, 2017 12:40
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
--- NOTE | 2017-03-12 14:43 | RADRPT ---
PROCEDURE: MRI Brain without contrast. CLINICAL INDICATION: Syncope. TECHNIQUE: An MRI of the brain was performed utilizing the following sequences: Sagittal and axial T1 weighted, axial T2 weighted, axial diffusion weighted with ADC mapping, coronal GRE, sagittal an d axial FLAIR. COMPARISON: Brain CT 03/11/2015. FINDINGS: No diffusion weighted abnormalities are seen to suggest the presence of acute ischemia or recent inf arct. No hypointense signal abnormalities are seen on the GRE images to suggest the presence of blo od degradation products. There is no evidence of intracranial hemorrhage, mass effect, or midline s hift. No extra-axial fluid collections are seen. The ventricles and sulci are mildly enlarged indica tive of volume loss. There are mild scattered foci of T2 FLAIR hyperintensity in the periventricular, deep, and subcortic al white matter, which are nonspecific in etiology but likely reflect chronic small vessel ischemic changes. 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 No abnormal intracranial vascular flow void is noted. The visualized paranasal sinuses demonstrate m ild scattered mucosal thickening mainly in ethmoid air cells and maxillary sinuses. There is thinnin g of bilateral lens indicative of prior lens replacement. IMPRESSION: 1. No acute intracranial hemorrhage, infarction or mass. 2. Mild chronic small vessel ischemic changes. 3. 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 4. Mild generalized cerebral volume loss. RPTAT: HFN .Yoana Dior MD, MD Date Time Electronically viewed and signed by .Yoana Dior MD, MD on 03/12/2017 14:43 .N/
[2017-03-13] VITALS (11 sets, daily range): BP systolic 121–150; BP diastolic 65–80; PULSE 67–83; RESP 16–19
[2017-03-13] MEDS: ACCU-CHEK XX SCH (02:00)
[2017-03-13] MEDS: HYDROmorphONE 1 MG/ML SYG IV PRN ×3 (03:01→14:30)
[2017-03-13 06:43] LABS: CREATININE 1.38 mg/dl (0.61-1.24); POTASSIUM 4.8 mmol/L (3.5-5.1)
[2017-03-13] MEDS: INSULIN ASPART [NOVOLOG] 3 ML PEN SC SCH ×4 (08:00→20:58)
[2017-03-13] MEDS: ASPIRIN (EC) 81 MG TAB PO SCH (08:16)
[2017-03-13] MEDS: CLOPIDOGREL 75 MG TAB PO SCH (08:17)
[2017-03-13] MEDS: METOPROLOL 50 MG TAB PO SCH ×2 (08:17→21:05)
[2017-03-13] MEDS: ISOSORBIDE MONONITRATE(SR)60 MG TAB PO SCH (08:17)
--- NOTE | 2017-03-13 09:47 | RADRPT ---
Echocardiogram Report Patient Name: SANIYA BALL Gender: Male Date: 1950 Study Date: 13-Mar-2017 Equipment Man: Jose Antonio Mccoy [facility] Location: [id number] Ref. Physician: LEONARDO GENAO Quality: Technically Difficult Study Procedures: Transthoracic echocardiogram with complete 2D, M-Mode, and doppler examination. Indications: Chest Pain. 2D/M Mode Doppler Measurement Value Normal Ranges Measurement Value Normal Ranges LVIDd 2D 4.6 3.5 - 5.6 cm KAVEH Vmax 1.1 cm2 LVIDs 2D 2.3 2.1 - 4.1 cm KAVEH VTI 1.1 cm2 FS 2D 49.2 % AV Mean Jorge 1.9 m/sec LVPWd 2D 1.1 0.6 - 1.1 cm AV Mean PG 17.0 mmHg IVSd 2D 1.1 0.6 - 1.1 cm AV Peak Jorge 2.8 m/sec IVS/LVPW 2D 1.0 AV Peak PG 32.0 mmHg AoR Diam 2D 2.8 2.0 - 3.7 cm AV VTI 66.2 cm LA/Ao 2D 1 0 - 1 LVOT Mean Jorge 0.8 m/sec EDV 2D 98.0 cm3 LVOT Mean PG 3.0 mmHg ESV 2D 12.8 cm3 LVOT Peak Jorge 1.1 m/sec LA Dimen 2D 4.0 2.3 - 4.0 cm LVOT Peak PG 5.0 mmHg LVOT Diam 1.9 cm LVOT VTI 24.6 cm LVOT Area 2.8 cm2 MV E Peak Jorge 1.3 m/sec MV A Peak Jorge 1.0 m/sec MV E/A 1.3 MV Decel Time 183 msec MV E/A 1.3 TR Peak Jorge 2.5 m/sec TR Peak PG 25.0 mmHg RVSP 28.0 mmHg Findings Left Ventricle: Normal left ventricular systolic function. Normal left ventricular cavity size. Normal left ventricular wall thickness. Ejection fraction is visually estimated at 60 %. Abnormal Diastolic Function. Right Ventricle: Normal right ventricular size. Normal right ventricular systolic function. Left Atrium: The left atrium is normal in size. Right Atrium: The right atrium is normal in size. Mitral Valve: Mild mitral leaflet calcification. Mild mitral annular calcification. Trace mitral regurgitation. Aortic Valve: Mild aortic stenosis. Aortic valve Max velocity 2.83 m/sec. Max PG 32.00 mmHg. Mean PG 17.00 mmHg. Aortic valve area 0.00 cm2. Aortic cusps appear moderately calcified. Trace aortic valve regurgitation. Tricuspid Valve: Normal appearance of the tricuspid valve. Estimated peak PA systolic pressure 28 mmHg. There is trace tricuspid regurgitation. Pulmonic Valve: Normal pulmonic valve appearance. Pericardium: Normal pericardium with no significant pericardial effusion. Aorta: Normal aortic root. IVC: Normal size and normal respiratory collapse consistent with normal right atrial pressure. Conclusions Normal left ventricular systolic function. Normal left ventricular cavity size. Normal left ventricular wall thickness. Ejection fraction is visually estimated at 60 %. Abnormal Diastolic Function. Normal right ventricular size. Normal right ventricular systolic function. The left atrium is normal in size. The right atrium is normal in size. Trace mitral regurgitation. Mild aortic stenosis. Aortic cusps appear moderately calcified. Trace aortic valve regurgitation. Estimated peak PA systolic pressure 28 mmHg. There is trace tricuspid regurgitation. Normal pericardium with no significant pericardial effusion. Electronically Signed By: Leonardo Genao 13-Mar-2017 09:47:09 -0700 Patient Name: SANIYA BALL Study Date: 13-Mar-2017 [id number]
[2017-03-13] MEDS: IBUPROFEN 400 MG TAB PO SCH ×2 (15:00→17:20)
--- NOTE | 2017-03-13 15:21 | PN ---
Date/Time of Note Date/Time of Note DATE: 03/13/17 TIME: 15:15 Assessment/Plan VTE Prophylaxis VTE Prophylaxis Intervention: SCD's Lines/Catheters IV Catheter Type (from Nrsg): Saline Lock Assessment/Plan Chief Complaint/Hosp Course Assessment/Plan: 66 yo M with CAD sp CABG presents with 1 day of chest pain reproducible to palpation, clinically suggestive of costochondritis. Serial troponin negative. #chest pain-still present, possibly musculoskeletal in origin -per cardiology service, continue current medicines, consider Ranexa? will discuss with cardiology -cont tele Consider high dose NSAIDs if okay with cardiology #lightheadedness: ADR to morphine v other neurologic exam unrevealing Monitor For CT angio of the neck as well, follow-up result #EVE on CKD? baseline Cr unknown acei on hold #CAD hx, HTN, HL: cont home plavix and BP meds #DM2: diet controlled, A1c equals 5.5. -Monitor for now. SCD prophx Problems: Subjective 24 Hr Interval Summary Free Text/Dictation Patient still having some chest pain symptoms, awaiting CT angiogram of the neck. Refusing insulin regimen. Exam/Review of Systems Vital Signs Vitals Vital Signs Date Time Temp Pulse Resp B/P Pulse Ox O2 Delivery O2 Flow Rate FiO2 03/13/17 12:21 83 03/13/17 11:58 98.3 17 124/76 97 03/12/17 03:00 Room Air Intake and Output 03/12/17 03/12/17 03/13/17 15:00 23:00 07:00 Intake Total 1000 ml 300 ml Balance 1000 ml 300 ml Exam nad, sitting at side of bed, in moderate distress CN 2-12 intact bl, 5/5 strength bl U and LEs, sensorium grossly intact to light touch +ttp over anterior costochondral joints, no mrg lungs clear abd soft no rashes Results Result Diagram: 03/12/17 0746 03/13/17 0548 Results 24 hrs Laboratory Tests Test 03/12/17 17:13 03/12/17 21:04 03/13/17 02:51 03/13/17 05:48 Bedside Glucose 106 120 145 Sodium Level 140 Potassium Level 4.8 Chloride Level 103 Carbon Dioxide Level 28 Anion Gap 14 Blood Urea Nitrogen 19 # Creatinine 1.38 H Glucose Level 124 Calcium Level 9.0 Test 03/13/17 08:02 03/13/17 12:05 Bedside Glucose 106 124 Medications Medications Current Medications Hydromorphone HCl (Dilaudid) 1 mg Q4 PRN IV PAIN LEVEL 7-10 Last administered on 03/13/17 14:30; Admin Dose 1 MG; Start 03/12/17 at 00:30 Ondansetron HCl (Zofran Inj) 4 mg Q6H PRN IV NAUSEA AND/OR VOMITING; Start at 00:30 Nitroglycerin (Nitroglycerin (Sl Tab) 0.4 Mg) 1 tab Q5M PRN SL CHEST PAIN Last administered on 03/12/17 09:43; Admin Dose 1 TAB; Start 03/12/17 at 00:30 Acetaminophen (Tylenol Tab) 650 mg Q6H PRN PO PAIN LEVEL 1-3 OR FEVER Last administered on 03/12/17 09:43; Admin Dose 650 MG; Start 03/12/17 at 00:30 Docusate Sodium (Colace) 100 mg Q12H PRN PO CONSTIPATION; Start 03/12/17 at 00: 30 Bisacodyl (Dulcolax) 5 mg DAILY PRN PO CONSTIPATION; Start 03/12/17 at 00:30 Aspirin (Halfprin) 81 mg DAILY PO Last administered on 03/13/17 08:16; Admin Dose 81 MG; Start 03/12/17 at 09:00 Clopidogrel Bisulfate (plaVIX) 75 mg DAILY PO Last administered on 03/13/17 08 :17; Admin Dose 75 MG; Start 03/12/17 at 09:00 Metoprolol Tartrate (Lopressor) 50 mg DAILY PO Last administered on 03/13/17 08:17; Admin Dose 50 MG; Start 03/12/17 at 09:00 Isosorbide Mononitrate (Imdur) 60 mg DAILY PO Last administered on 03/13/17 08 :17; Admin Dose 60 MG; Start 03/12/17 at 09:00 Diagnostic Test (Pha) (Accu-Chek) 1 ea 02 XX ; Start 03/13/17 at 02:00 Miscellaneous Information 1 ea NOTE XX ; Start 03/12/17 at 03:30 Glucose (Glutose) 15 gm Q15M PRN PO DECREASED GLUCOSE; Start 03/12/17 at 03:30 Glucose (Glutose) 22.5 gm Q15M PRN PO DECREASED GLUCOSE; Start 03/12/17 at 03: 30 Dextrose (D50w Syringe) 25 ml Q15M PRN IV DECREASED GLUCOSE; Start 03/12/17 at 03:30 Dextrose (D50w Syringe) 50 ml Q15M PRN IV DECREASED GLUCOSE; Start 03/12/17 at 03:30 Glucagon (Glucagen) 1 mg Q15M PRN IM DECREASED GLUCOSE; Start 03/12/17 at 03:30 Glucose (Glutose) 15 gm Q15M PRN BUCCAL DECREASED GLUCOSE; Start 03/12/17 at 03 :30 Procedures Procedures 2D ECHO: Conclusions Normal left ventricular systolic function. Normal left ventricular cavity size. Normal left ventricular wall thickness. Ejection fraction is visually estimated at 60 %. Abnormal Diastolic Function. Normal right ventricular size. Normal right ventricular systolic function. The left atrium is normal in size. The right atrium is normal in size. Trace mitral regurgitation. Mild aortic stenosis. Aortic cusps appear moderately calcified. Trace aortic valve regurgitation. Estimated peak PA systolic pressure 28 mmHg. There is trace tricuspid regurgitation. Normal pericardium with no significant pericardial effusion. LUIS CARLOS LU Mar 13, 2017 15:21
--- NOTE | 2017-03-13 18:43 | CONS ---
Date/Time of Note Date/Time of Note DATE: 03/13/17 TIME: 18:39 Assessment/Plan Assessment/Plan Additional Assessment/Plan Possible syncope Chest and back pain Hypertension CAD with history of CABG and PCI Preserved ejection fraction Carotid artery stenosis -Patient with no arrhythmias noted on telemetry overnight. Patient's chest discomfort appears musculoskeletal and reproducible and worse with positions and movements of left arm. Echocardiogram with preserved ejection fraction. Serial cardiac enzymes remain negative. Patient with borderline left internal carotid artery stenosis with recent carotid ultrasound done from outside facility with 50-69%. This was discussed with our radiology calling and will proceed with CT angiogram of the carotids for better differentiation. Would hold NSAIDs at the current time given renal dysfunction and patient to receive contrast. Would give IV hydration. Will change beta-leanna to twice daily. Otherwise continue antiplatelet therapy and statin therapy. Consultation Date/Type/Reason Admit Date/Time Mar 11, 2017 at 19:38 Initial Consult Date Type of Consultation: cv 24 HR Interval Summary Free Text/Dictation Patient continues to complain of positional chest and back pain. Pain is worse with pushing on left side and leaning on left side. Denies exertional chest pain or shortness of breath. Exam/Review of Systems Vital Signs Vitals Vital Signs Date Time Temp Pulse Resp B/P Pulse Ox O2 Delivery O2 Flow Rate FiO2 03/13/17 16:20 78 03/13/17 15:37 98.1 19 150/80 96 03/12/17 03:00 Room Air Intake and Output 03/12/17 03/12/17 03/13/17 15:00 23:00 07:00 Intake Total 1000 ml 300 ml Balance 1000 ml 300 ml Exam No apparent distress Constitutional: alert, oriented Head: normocephalic Respiratory: other (Coarse breath sounds bilaterally, no wheezing) Cardiovascular: other (S1-S2 heard), regular rate and rhythm Gastrointestinal: bowel sounds, non-tender, soft Musculoskeletal: other (Pain with palpation of left-sided chest wall and left back and with movement of left arm) Extremities: other (Trace edema) Results Result Diagram: 03/12/17 0746 03/13/17 0548 Results 24 hrs Laboratory Tests Test 03/12/17 21:04 03/13/17 02:51 03/13/17 05:48 03/13/17 08:02 Bedside Glucose 120 145 106 Sodium Level 140 Potassium Level 4.8 Chloride Level 103 Carbon Dioxide Level 28 Anion Gap 14 Blood Urea Nitrogen 19 # Creatinine 1.38 H Glucose Level 124 Calcium Level 9.0 Test 03/13/17 12:05 03/13/17 16:58 Bedside Glucose 124 101 Medications Medications Current Medications Hydromorphone HCl (Dilaudid) 1 mg Q4 PRN IV PAIN LEVEL 7-10 Last administered on 03/13/17 14:30; Admin Dose 1 MG; Start 03/12/17 at 00:30 Ondansetron HCl (Zofran Inj) 4 mg Q6H PRN IV NAUSEA AND/OR VOMITING; Start at 00:30 Nitroglycerin (Nitroglycerin (Sl Tab) 0.4 Mg) 1 tab Q5M PRN SL CHEST PAIN Last administered on 03/12/17 09:43; Admin Dose 1 TAB; Start 03/12/17 at 00:30 Acetaminophen (Tylenol Tab) 650 mg Q6H PRN PO PAIN LEVEL 1-3 OR FEVER Last administered on 03/12/17 09:43; Admin Dose 650 MG; Start 03/12/17 at 00:30 Docusate Sodium (Colace) 100 mg Q12H PRN PO CONSTIPATION; Start 03/12/17 at 00: 30 Bisacodyl (Dulcolax) 5 mg DAILY PRN PO CONSTIPATION; Start 03/12/17 at 00:30 Aspirin (Halfprin) 81 mg DAILY PO Last administered on 03/13/17 08:16; Admin Dose 81 MG; Start 03/12/17 at 09:00 Clopidogrel Bisulfate (plaVIX) 75 mg DAILY PO Last administered on 03/13/17 08 :17; Admin Dose 75 MG; Start 03/12/17 at 09:00 Metoprolol Tartrate (Lopressor) 50 mg DAILY PO Last administered on 03/13/17 08:17; Admin Dose 50 MG; Start 03/12/17 at 09:00 Isosorbide Mononitrate (Imdur) 60 mg DAILY PO Last administered on 03/13/17 08 :17; Admin Dose 60 MG; Start 03/12/17 at 09:00 Diagnostic Test (Pha) (Accu-Chek) 1 ea 02 XX ; Start 03/13/17 at 02:00 Miscellaneous Information 1 ea NOTE XX ; Start 03/12/17 at 03:30 Glucose (Glutose) 15 gm Q15M PRN PO DECREASED GLUCOSE; Start 03/12/17 at 03:30 Glucose (Glutose) 22.5 gm Q15M PRN PO DECREASED GLUCOSE; Start 03/12/17 at 03: 30 Dextrose (D50w Syringe) 25 ml Q15M PRN IV DECREASED GLUCOSE; Start 03/12/17 at 03:30 Dextrose (D50w Syringe) 50 ml Q15M PRN IV DECREASED GLUCOSE; Start 03/12/17 at 03:30 Glucagon (Glucagen) 1 mg Q15M PRN IM DECREASED GLUCOSE; Start 03/12/17 at 03:30 Glucose (Glutose) 15 gm Q15M PRN BUCCAL DECREASED GLUCOSE; Start 03/12/17 at 03 :30 Ibuprofen (Motrin) 400 mg Q6 PO Last administered on 03/13/17t 17:20; Admin Dose 400 MG; Start 03/13/17 at 15:00; Stop 03/14/17 at 14:55 Leonardo Genao DO Mar 13, 2017 18:42
[2017-03-13] MEDS ORDERED: SOD CHLORIDE 0.9% 100 ML ONE (18:57)
[2017-03-13] MEDS ORDERED: IODIXANOL LOCM 50 ML BTL ONE (18:57)
[2017-03-13] MEDS ORDERED: IODIXANOL LOCM 100 ML BTL ONE (18:57)
[2017-03-13] MEDS ORDERED: SOD CHLORIDE 0.9% 250 ML IV ONE (19:00)
[2017-03-13] MEDS ORDERED: SOD CHLORIDE 0.9% 1,000 ML IV SCH (19:00)
[2017-03-14] VITALS (8 sets, daily range): BP systolic 114–157; BP diastolic 57–74; PULSE 74–91; RESP 16–19
[2017-03-14] MEDS: ACCU-CHEK XX SCH (02:00)
[2017-03-14] MEDS: HYDROmorphONE 1 MG/ML SYG IV PRN (02:56)
[2017-03-14] MEDS: INSULIN ASPART [NOVOLOG] 3 ML PEN SC SCH ×2 (08:00→12:00)
[2017-03-14] MEDS: CLOPIDOGREL 75 MG TAB PO SCH (08:33)
[2017-03-14] MEDS: METOPROLOL 50 MG TAB PO SCH (08:34)
[2017-03-14] MEDS: ASPIRIN (EC) 81 MG TAB PO SCH (08:34)
[2017-03-14] MEDS: ISOSORBIDE MONONITRATE(SR)60 MG TAB PO SCH (08:35)
--- NOTE | 2017-03-14 10:22 | RADRPT ---
PROCEDURE: CTA Neck. CLINICAL INDICATION: Left carotid stenosis. TECHNIQUE: CTA of the neck was obtained. Sagittal and coronal reformations and MIPs were provided. I mages were obtained prior following the intravenous contrast administration of 100 cc of Visipaque 3 20 contrast. The administered radiation dose was CTDI vol = 2.34, 3.51, 52.62, 28.95 mGy, DLP = 1. 17, 1.75, 26.31, 836.29 mGy-cm.Coronal and sagittal as well as maximal intensity projection reforma tions were obtained. Direct measurement of vessel diameter was made in reference to measurements of the distal internal carotid artery diameter. One or more of the following dose reduction techniques were used: Automated exposure control, Adjustment of the mA and/or kV according to patient size, or Use of iterative reconstruction technique. COMPARISON: No prior studies are available for comparison. Ultrasound of the carotid arteries from the March 12, 2017. Above FINDINGS: CTA neck: Aorta: Normal in caliber. There are moderate vascular calcifications and atheroma within the aortic arch. There are moderate vascular calcifications within the proximal left subclavian artery as well as atheroma causing mild to moderate stenosis (image 307 series 2). Right common carotid artery: There are mild to moderate vascular calcifications and atheroma. Paten t without evidence of stenosis. Right internal carotid artery: There are extensive vascular calcifications and moderate atheroma wit hin the right carotid bulb causing 52% stenosis by NASCET criteria. There is also a more distal mckeon dem stenosis causing 54% stenosis by NASCET criteria. Right external carotid artery: There are mild vascular calcifications causing mild right external ca rotid artery stenosis. Left common carotid artery: There are mild vascular calcifications and atheroma within the proximal left common carotid artery. There are moderate to extensive vascular calcifications within the dist al left common carotid artery causing mild to moderate stenosis (image 192 series 2). Left internal carotid artery: There are moderate vascular calcifications within the left carotid bul b causing 54% stenosis by NASCET criteria. There is also a more distal tandem stenosis which evalua tion is limited due to motion degradation causing approximately 56% stenosis (image 141 series 2). Left external carotid artery: There is moderate atheroma causing moderate left external carotid gabby ry origin stenosis. V1/V2 vertebral arteries: There are moderate vascular calcifications within the proximal right V1 ve rtebral artery causing mild to moderate stenosis. There are mild vascular calcifications within the proximal left V1 vertebral artery causing mild stenosis. There are mild vascular calcifications wi thin the left V4 segment causing moderate stenosis. Vertebral artery dominance: Codominant. There are moderate vascular calcifications within the bilateral cavernous carotid arteries. This ca uses moderate right and mild left cavernous carotid artery stenosis. There is moderate to severe dis gamal right petrous carotid artery stenosis. CT neck: There is no cervical adenopathy. Sternotomy wires are noted. There is a sub centimeter right thyroi d nodule. There is straightening of the normal cervical lordosis. There are mild to moderate degene rative changes within the cervical spine. There are severe degenerative changes within the right tem poromandibular joint. IMPRESSION: 1. 52% proximal right internal carotid artery stenosis by NASCET criteria. There is also a more di stal tandem stenosis causing 54% stenosis by NASCET criteria. 2. 54% proximal left internal carotid artery stenosis by NASCET criteria. There is also a more dist al tandem stenosis which evaluation is limited due to motion degradation measuring approximately 56% stenosis. 3. Mild to moderate distal left common carotid artery stenosis. 4. Moderate left external carotid artery origin stenosis. 5. Mild right external carotid artery origin stenosis. 6. Moderate right and mild left cavernous carotid artery stenosis. There is moderate to severe dist al right petrous carotid artery stenosis. 7. Mild to moderate proximal left subclavian artery stenosis. 8. Mild to moderate proximal right V1 and mild left V1 vertebral artery stenosis. 9. Moderate left V4 vertebral artery stenosis. 10. Subcentimeter right thyroid nodule. Further findings as detailed above. RPTAT: PP .Rito Cook MD, MD Date Time Electronically viewed and signed by .Rito Cook MD, on 03/14/2017 10:22 .F/
[2017-03-14] MEDS: ACETAMINOPHEN 325 MG TAB PO PRN (13:05)
--- NOTE | 2017-03-14 13:12 | CONS ---
Date/Time of Note Date/Time of Note DATE: 03/14/17 TIME: 13:09 Assessment/Plan Assessment/Plan Additional Assessment/Plan Chest and back pain Hypertension CAD with history of CABG and PCI Preserved ejection fraction Carotid artery stenosis -Patient status post CT neck angiogram with evidence of bilateral carotid 50% stenosis. Images reviewed with our radiology colleague Dr. Peñaloza regarding some possible discrepancy in distal left internal carotid stenosis does not appear to be severe. Furthermore, his symptoms of chest discomfort and back pain are reproducible and positional and improved today. Serial cardiac enzymes remain negative, ECG without any significant ischemic abnormalities. CT pulmonary and aortic angiogram done did also demonstrate patent MAYNARD to LAD. Would continue aggressive medical management with aspirin therapy, statin therapy, beta- leanna. DC planning Consultation Date/Type/Reason Admit Date/Time Mar 11, 2017 at 19:38 Type of Consultation: cv 24 HR Interval Summary Free Text/Dictation Patient seen and examined. Feeling better, less back and chest pain. Denies shortness of breath or dizziness Exam/Review of Systems Vital Signs Vitals Vital Signs Date Time Temp Pulse Resp B/P Pulse Ox O2 Delivery O2 Flow Rate FiO2 03/14/17 12:27 74 03/14/17 11:21 98.3 19 135/71 95 03/12/17 03:00 Room Air Intake and Output 03/13/17 03/13/17 03/14/17 15:00 23:00 07:00 Intake Total 900 ml 300 ml Balance 900 ml 300 ml Exam No apparent distress Constitutional: alert, oriented Head: normocephalic Neck: supple Respiratory: other (Coarse breath sounds bilaterally, no wheezing) Cardiovascular: other (S1-S2 heard), regular rate and rhythm Gastrointestinal: bowel sounds, non-tender, soft Extremities: other (No edema) Results Result Diagram: 03/12/17 0746 03/13/17 0548 Results 24 hrs Laboratory Tests Test 03/13/17 16:58 03/13/17 20:27 03/14/17 00:14 03/14/17 07:49 Bedside Glucose 101 164 108 105 Test 03/14/17 12:22 Bedside Glucose 114 Medications Medications Current Medications Hydromorphone HCl (Dilaudid) 1 mg Q4 PRN IV PAIN LEVEL 7-10 Last administered on 03/14/17t 02:56; Admin Dose 1 MG; Start 03/12/17 at 00:30 Ondansetron HCl (Zofran Inj) 4 mg Q6H PRN IV NAUSEA AND/OR VOMITING; Start at 00:30 Nitroglycerin (Nitroglycerin (Sl Tab) 0.4 Mg) 1 tab Q5M PRN SL CHEST PAIN Last administered on 03/12/17 09:43; Admin Dose 1 TAB; Start 03/12/17 at 00:30 Acetaminophen (Tylenol Tab) 650 mg Q6H PRN PO PAIN LEVEL 1-3 OR FEVER Last administered on 03/14/17 13:05; Admin Dose 650 MG; Start 03/12/17 at 00:30 Docusate Sodium (Colace) 100 mg Q12H PRN PO CONSTIPATION; Start 03/12/17 at 00: 30 Bisacodyl (Dulcolax) 5 mg DAILY PRN PO CONSTIPATION; Start 03/12/17 at 00:30 Aspirin (Halfprin) 81 mg DAILY PO Last administered on 03/14/17 08:34; Admin Dose 81 MG; Start 03/12/17 at 09:00 Clopidogrel Bisulfate (plaVIX) 75 mg DAILY PO Last administered on 03/14/17 08 :33; Admin Dose 75 MG; Start 03/12/17 at 09:00 Isosorbide Mononitrate (Imdur) 60 mg DAILY PO Last administered on 03/14/17 08 :35; Admin Dose 60 MG; Start 03/12/17 at 09:00 Diagnostic Test (Pha) (Accu-Chek) 1 ea 02 XX ; Start 03/13/17 at 02:00 Miscellaneous Information 1 ea NOTE XX ; Start 03/12/17 at 03:30 Glucose (Glutose) 15 gm Q15M PRN PO DECREASED GLUCOSE; Start 03/12/17 at 03:30 Glucose (Glutose) 22.5 gm Q15M PRN PO DECREASED GLUCOSE; Start 03/12/17 at 03: 30 Dextrose (D50w Syringe) 25 ml Q15M PRN IV DECREASED GLUCOSE; Start 03/12/17 at 03:30 Dextrose (D50w Syringe) 50 ml Q15M PRN IV DECREASED GLUCOSE; Start 03/12/17 at 03:30 Glucagon (Glucagen) 1 mg Q15M PRN IM DECREASED GLUCOSE; Start 03/12/17 at 03:30 Glucose (Glutose) 15 gm Q15M PRN BUCCAL DECREASED GLUCOSE; Start 03/12/17 at 03 :30 Ibuprofen (Motrin) 400 mg Q6 PO Last administered on 03/13/17 17:20; Admin Dose 400 MG; Start 03/13/17 at 15:00; Stop 03/14/17 at 14:55; Status Future Hold Metoprolol Tartrate (Lopressor) 50 mg BID PO Last administered on 03/14/17 08: 34; Admin Dose 50 MG; Start 03/13/17 at 21:00 Leonardo Genao DO Mar 14, 2017 13:12
--- NOTE | 2017-03-14 13:50 | RADRPT ---
Vent Rate: 69 bpm RR Interval: 0 msec ME Interval: 156 msec QRS Duration: 98 msec QT Interval: 402 msec QTC Interval: 430 msec P-R-T [place]: 60 - 46 - 26 degrees Normal sinus rhythm Normal ECG Electronically Signed By: Leonardo Genao [id number]
--- NOTE | 2017-03-14 13:58 | PDOCDIS ---
Discharge Instructions CONDITION Patient Condition: Stable HOME CARE INSTRUCTIONS: Diet Instructions: Low Fat /Cholesterol ACTIVITY: Activity Restrictions: Slowly Increase Activity FOLLOW UP/APPOINTMENTS Follow-up Plan Please take your medications as prescribed. If you experience any further dizziness or loss of consciousness, please call 911, your primary care doctor, your stockholder, or go to the ER. Please follow-up with your regular doctor in the clinic in 1 week. LUIS CARLOS LU. Mar 14, 2017 13:58
[2017-03-14] MEDS ORDERED: METO-429 PO (13:59)
--- NOTE | 2017-03-14 14:04 | DS ---
Date/Time of Note Date/Time of Note DATE: 03/14/17 TIME: 14:01 Discharge Summary Admission/Discharge Info Admit Date/Time Mar 11, 2017 at 19:38 Discharge Date/Time Patient Condition: Stable Hx of Present Illness Hospital Course 66-year-old [place]ian-speaking male with a known history of coronary artery disease with a triple bypass performed 20 years ago as well as cardiac stents. The patient indicates that 2 days prior to arrival the patient had been washing his hands in the bathroom when he had a brief transient loss of consciousness, with loss of postural tone that lasted for roughly 20 minutes. This was witnessed by his . He did not hit his head during the syncope episode. His indicated he had a similar episode on January 25, 2017 roughly a month and half ago when he was admitted to [facility] for 2 days and she indicates all tests were benign. His business services associate is Dr. Elkins who he saw on March 03, 2017, 7 days ago. He stated he underwent a stress test but does not know the results. His reasoning for coming to the emergency department today is upon awakening he experienced a left-sided chest pressure that radiated to the back. He stated the chest pressure was 10 out of 10 in intensity. The chest pressure also radiated to his arm. He denies any shortness of breath at rest or exertion. He denied any hemoptysis hematemesis or melanotic stools. He felt nauseous and diaphoretic during the onset of the chest pain which lasted for roughly 20 minutes. He stated the pain resolved and then returned. His made him come to the emergency department to be further evaluated. He was admitted to telemetry floor and seen by cardiology team. He ruled out for acute coronary syndrome. He had no further syncopal events while he was here in the hospital. Brain MRI showed No acute intracranial hemorrhage, infarction or mass. 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 Patient had some slight changes made to his blood pressure medications. He also underwent CT angiogram of the neck with evidence shown of bilateral carotid 50% stenosis. However, images were reviewed with our radiology colleague Dr. Peñaloza regarding some possible discrepancy in distal left internal carotid stenosis does not appear to be severe. Furthermore, his symptoms of chest discomfort and back pain are reproducible and positional and improved. After speaking with senior sales consultant teams, patient will be discharged home today in improved condition, he has been given strict return precautions. For full discharge medication list please see this discharge summary for updated patient medication list. Home Meds Active Scripts Metoprolol Tartrate* (Lopressor*) 50 Mg Tab, 50 MG PO BID, #60 TAB 1 Refill Prov:LUIS CARLOS LU 03/14/17 Reported Medications Aspirin Ec (Aspir 81) 81 Mg Tablet. 11/03/09 Nitroglycerin* (Nitroglycerin* SL) 0.4 Mg Tab.subl 11/03/09 Lansoprazole* (Prevacid*) 30 Mg Capsule. 11/03/09 Isosorbide Mononitrate* (Imdur*) 60 Mg Tab.sr.24h 11/03/09 Benazepril Hcl* (Lotensin*) 40 Mg Tablet 11/03/09 Hydralazine/Hydrochlorothiazid (Hydra-Zide 50-50 Capsule) 1 Cap Capsule 11/03/09 Pravastatin Sodium* (Pravachol*) 40 Mg Tablet 11/03/09 Clopidogrel Bisulfate (Plavix) 75 Mg Tablet 11/03/09 Discontinued Reported Medications Metoprolol (Lopressor) 50 Mg Tablet 11/03/09 Primary Care Provider Sharita Wniter Time spent on discharge: > 30 minutes Pending Labs Laboratory Tests Test 03/13/17 16:58 03/13/17 20:27 03/14/17 00:14 03/14/17 07:49 Bedside Glucose 101mg/dL (70-220) 164mg/dL (70-220) 108mg/dL (70-220) 105mg/dL (70-220) Test 03/14/17 12:22 Bedside Glucose 114mg/dL (70-220) LUIS CARLOS LU Mar 14, 2017 14:04
== END 2017-03-14 15:15 | disposition home or self-care (01) | DRG 206 ==
LOC: E/R 14:51 → MS4 19:38
PROVIDERS: ADMIT Family Medicine; ATTEND Family Medicine
DX: M94.0 Chondrocostal junction syndrome [Tietze] (principal); N17.9 Acute kidney failure, unspecified; I25.810 Atherosclerosis of coronary artery bypass graft(s) without angina pectoris; E11.22 Type 2 diabetes mellitus with diabetic chronic kidney disease; I12.9 Hypertensive chronic kidney disease with stage 1 through stage 4 chronic kidney disease, or unspecified chronic kidney disease; I65.29 Occlusion and stenosis of unspecified carotid artery; N18.9 Chronic kidney disease, unspecified; R42 Dizziness and giddiness; M54.89 Other dorsalgia; R55 Syncope and collapse; R07.89 Other chest pain; Z95.1 Presence of aortocoronary bypass graft; Z86.73 Personal history of transient ischemic attack (TIA), and cerebral infarction without residual deficits
CPT/HCPCS: 36415; 70450; 70498; 70551; 71010; 71275; 80048; 80053; 80061; 82150; 82550; 82553; 82962; 83036; 83690; 83880; 84443; 84484; 85025; 85610; 85730; 93005; 93306; 93880; 96374; 96375; 96376; C9113; J1170; J1815; J2270; J2405; J7030; J7040; Q9967